=== PATIENT | male | born 1965 | race Caucasian/White ===

== ENCOUNTER 2017-03-14 22:30 | Emergency (ER) | payer BC, OTHER ==
[2017-03-14] MEDS ORDERED: NORMAL SALINE 500 ML IV.SOLN IV STA (22:45)
[2017-03-14] MEDS ORDERED: NORMAL SALINE 500 ML IV.SOLN IV ONE (22:45)
[2017-03-14] MEDS: ASPIRIN 81 MG CHEW TAB PO STA (23:03)
[2017-03-14] MEDS ORDERED: ASPIRIN 81 MG CHEW TAB ONE (23:04)
[2017-03-14] MEDS ORDERED: 0.9 % SODIUM CHLORIDE 1,000 ML IV ONE (23:04)
[2017-03-14 23:10] LABS: BASOPHILS % 0.8 (0.0-1.5); EOSINOPHILS % 3.3 % (0.0-6.8); MEAN CORPUSCULAR HEMOGLOBIN 32.6 pg (28.0-34.0); MEAN CORPUSCULAR VOLUME 93.1 fl (80.0-100.0); MONOCYTES % 4.1 % (0.0-11.0); NEUTROPHILS # 5.1 # k/uL (1.4-7.7)
--- NOTE | 2017-03-14 23:11 | ED Physician Documentation ---
General Adult - HISTORIAN Historian: patient - HPI Chief Complaint: General Adult Further Comments: yes (51 year old male presents with complaints of dizziness, jaw pain, and chest pressure. Patient states "it feels like a car is sitting on my chest"; rates discomfort /10. Patient c/o mild nausea. 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 ) EYES/ENT: none CVS/RESP: chest pain, shortness of breath GI/: nausea MS/SKIN/LYMPH: none NEURO/PSYCH: headache - PAST HX Past History: AMI, other (HLD) Surgeries/Procedures: cardiac stent (Circ 2014 at [facility]) Allergies/Adverse Reactions: Allergies Allergy/AdvReac Type Severity Reaction Status Date / Time No Known Allergies Allergy Verified 03/14/17 23:10 Home Medications: Ambulatory Orders Medication Instructions Recorded Lisinopril [Lisinopril] 20 mg PO DAILY 08/08/13 Naproxen Sodium [Naprosyn] 550 mg PO DIRECTED 08/08/13 Simvastatin [Zocor] 5 mg PO DAILY 08/08/13 Aspirin [Sara] 81 mg PO DAILY 03/14/17 - SOCIAL HX Smoking History: cigarettes - FAMILY HX Family History: No - VITAL SIGNS Vital Signs: Vital Signs Temp Pulse Resp BP Pulse Ox 137/89 03/27/15 17:40 - REVIEWED ASSESSMENTS Nursing Assessment Reviewed: Yes Vitals Reviewed: Yes Progress - Progress Progress: Patient medicated with zofran IV for nausea and 1 nitro SL No change in chest pressure. 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 States he has not been sleeping well. - EKG/XRAY/CT EKG: rhythm (ST, rate 104, no acute changes) ED Results Lab/Radiology - Radiology Radiology Impressions: Chest, AP portable History: Dyspnea Findings: No infiltrate, effusion or pneumothorax is present. Heart size, mediastinum and pulmonary vascularity are normal. Impression: No active disease. - Orders Orders: ED Orders Category Date Time Status Continuous EKG monitoring Q1H Care 03/14/17 22:48 Active Continuous Pulse Oximetry Q1H Care 03/14/17 22:48 Active Saline Lock [Remove IV/Saline Lock] 1T Care 03/14/17 22:42 Active CBC/PLATELET/DIFF Stat Lab 03/14/17 23:05 Received CMP Stat Lab 03/14/17 23:05 Received CREATINE KINASE Stat Lab 03/14/17 23:05 Received TROPONIN I (cTnI) Stat Lab 03/14/17 23:05 Received URINALYSIS Stat Lab 03/14/17 Uncollected 0.9 % Sodium Chloride [Normal Saline] Med 03/14/17 22:45 Stat 500 ml IV STAT STA 0.9 % Sodium Chloride [Normal Saline] 1,000 ml Med 03/14/17 23:04 Discontinued IV .STK-MED Aspirin Med 03/14/17 23:04 Discontinued 324 mg .ROUTE .STK-MED ONE Aspirin Med 03/14/17 23:05 Discontinued 324 mg PO NOW STA Oxygen Daily Oxygen 03/14/17 22:45 Ordered EKG WITH COMPARISON Stat Ther 03/14/17 22:41 Ordered General Adult Physical Exam - PHYSICAL EXAM GENERAL APPEARANCE: [id number] N EENT: eye inspection normal, ENT inspection normal, pharynx normal, no signs of dehydration, BRANDY, no nystagmus, TM's nml RESPIRATORY: no resp distress, breath sounds normal, other (tenderness with palpation) CVS: reg rate & rhythm, heart sounds normal, equal pulses, no murmur, no gallop , PMI nml, no JVD, no friction rub, 24 ABDOMEN: soft, no organomegaly, normal bowel sounds, no abdominal bruit, no distension, other (morbid obesity) SKIN: normal color, warm/dry, NR, INT, PAL, DR EXTREMITIES: non-tender, normal range of motion, no evidence of injury, no edema , J, [employer] BUSINESS ANALYST NEURO: oriented X3, CN's nml as tested, motor nml, sensation nml, mood/affect nml Discharge Clincal Impression: Non-cardiac chest pain, Anxiety Referrals: Sean Ashley MD [Primary Care Provider] - 2 Days Additional Instructions: Follow up by Tuesday with your primary care doctor Rest Return to Er if you have chest pain with shortness of breath, nausea and diaphoresis. Home Medications: Ambulatory Orders Lisinopril [Lisinopril] 20 mg PO DAILY 08/08/13 Naproxen Sodium [Naprosyn] 550 mg PO DIRECTED 08/08/13 Simvastatin [Zocor] 5 mg PO DAILY 08/08/13 Aspirin [Sara] 81 mg PO DAILY 03/14/17 Condition: Good Disposition: 01 HOME, SELF-CARE Decision to Admit: NO Decision Time: 00:06
[2017-03-14] MEDS ORDERED: NITROGLYCERIN 0.4 MG TAB.SUBL SL ONE (23:15)
[2017-03-14] MEDS ORDERED: ONDANSETRON HCL/PF 4 MG/ 2ML VIAL ONE (23:15)
[2017-03-14] MEDS: NITROGLYCERIN 0.4 MG TAB.SUBL SL ONE (23:15)
[2017-03-14] MEDS: ONDANSETRON HCL/PF 4 MG/ 2ML VIAL IVP ONE (23:21)
[2017-03-14 23:24] LABS: eGFR (African) > 60; eGFR (Non-African) > 60
[2017-03-14] MEDS: KETOROLAC TROMETHAMINE 30 MG/1ML VIAL IVP ONE (23:48)
[2017-03-15 00:28] VITALS: BP 118/80
--- NOTE | 2017-03-15 06:35 | Diagnostic Imaging Report ---
JAIRO AGUILAR (PAM) - ER~ [facility] [address] [address] ~ ~ ~ ~ Report Submission Date: Mar 14, 2017 11:26:08 PM CDT Patient ~ Study Name: MAURICE POLK ~ Date: Mar 14, 2017 11:15:34 PM CDT ~ Modality Type: CR Gender: M ~ Description: CHEST : 67 ~ Institution: [facility] Physician: JAIRO AGUILAR (PAM) - ER ~ ~ ~ ~ Chest, AP portable History: Dyspnea Findings: No infiltrate, effusion or pneumothorax is present. Heart size, mediastinum and pulmonary vascularity are normal. Impression: No active disease. ~ Electronically signed on Mar 14, 2017 11:26:08 PM CDT by: Giuseppe WARREN
== END 2017-03-15 00:10 | disposition home or self-care (01) ==
LOC: ED 22:30
DX: F41.9 Anxiety disorder, unspecified (principal); R07.89 Other chest pain
CPT/HCPCS: 71010; 80053; 82550; 84484; 85025; J1885; J2405; J7030; 96361; 96374; 96375; 99283; S1016